=== PATIENT | female | born 1950 | race Caucasian/White ===

== ENCOUNTER 2024-11-18 13:15 | Inpatient (IN) | payer MEDICARE, OTHER ==
[~2024-11-18] VITALS: Ht 165.1 cm; Wt 57.5 kg
[2024-11-18 13:48] LABS: BASOPHILS % (AUTO) 0.3 % (0.0-2.0); EOSINOPHILS % (AUTO) 2.1 % (1.0-6.0); HEMATOCRIT 41.3 % (36-46); LYMPHOCYTES # (AUTO) 1.9 K/uL (1.0-4.8); LYMPHOCYTES % (AUTO) 30.4 % (22.0-44.0); MEAN CORPUSCULAR HEMOGLOBIN 32.3 pg (26.0-34.0); MEAN CORPUSCULAR HGB CONC 33.9 G/dL (31.0-37.0); MEAN CORPUSCULAR VOLUME 95 fL (80-100); MONOCYTES # (AUTO) 0.6 K/uL (0.1-1.0); MONOCYTES % (AUTO) 10.1 % (2.0-9.0); NEUTROPHILS # (AUTO) 3.5 K/uL (1.8-7.7); NEUTROPHILS % (AUTO) 57.1 % (40.0-70.0); PLATELET COUNT (AUTO) 250 K/uL (150-450); RED BLOOD CELL COUNT(AUTO) 4.33 MIL/uL (4.00-5.20); RED CELL DISTRIBUTION WIDTH 12.8 % (11.5-14.5); WHITE BLOOD COUNT (AUTO) 6.2 K/uL (4.5-11.0)
[2024-11-18 14:00] LABS: ANION GAP 8 mmol/L (8-16); CALCIUM, TOTAL 9.3 mg/dL (8.8-10.5); CARBON DIOXIDE 30 mmol/L (22-29); CHLORIDE 104 mmol/L (98-107); CREATININE 0.95 mg/dL (0.60-1.30); GLOMERULAR FILTR. RATE CALC 58 mL/min (>60); GLUCOSE,RANDOM 90 mg/dL (70-110); POTASSIUM 4.2 mmol/L (3.5-5.1); SODIUM SERUM 142 mmol/L (136-145); UREA NITROGEN, BLOOD 22 mg/dL (7-18)
[2024-11-18 14:06] LABS: ALBUMIN 3.6 g/dL (3.4-5.0); BILIRUBIN,DIRECT 0.1 mg/dL (0.00-0.20); BILIRUBIN,TOTAL 0.5 mg/dL (0.1-1.0); TOTAL PROTEIN, SERUM 7.1 g/dL (6.4-8.2)
[2024-11-18 14:15] LABS: TROPONIN I-HIGH SENSITIVITY 5 ng/L (<51)
[2024-11-18 14:28] LABS: APPEARANCE,URINE CLEAR (CLEAR); BILIRUBIN,URINE NEGATIVE (NEGATIVE); COLOR,URINE LIGHT YELLOW (YELLOW); GLUCOSE, URINE (UA) NEGATIVE (NEGATIVE); KETONES,URINE NEGATIVE (NEGATIVE); LEUKOCYTE ESTERASE ,URINE SMALL (NEGATIVE); NITRATE,URINE NEGATIVE (NEGATIVE); OCCULT BLOOD,URINE NEGATIVE (NEGATIVE); PH,URINE 6.5 (5.0-8.0); PROTEIN,URINE NEGATIVE (NEGATIVE); SPECIFIC GRAVITIY, URINE 1.011 (1.003-1.030); UROBILINOGEN,URINE <=1.0 mg/dL (<=1.0)
[2024-11-18 14:29] LABS: PH,URINE DRUG SCREEN 6.5 (5.0-8.0)
[2024-11-18 14:31] LABS: BACTERIA,URINE None Seen /HPF (None Seen); RBC,URINE None Seen /HPF (0-2); SQUAMOUS EPITHELIAL CELL,UR Moderate /LPF (None Seen); WBC,URINE 0-2 /HPF (0-5)
[2024-11-18 14:36] LABS: ALCOHOL, URINE DRUG SCREEN NEGATIVE (NEGATIVE); AMPHET/METH SCREEN,URINE NEGATIVE (NEGATIVE); BARBITURATE SCREEN, URINE NEGATIVE (NEGATIVE); BENZODIAZEPINES SCREEN,URINE NEGATIVE (NEGATIVE); CANNABINOID SCREEN,URINE NEGATIVE (NEGATIVE); COCAINE SCREEN,URINE NEGATIVE (NEGATIVE); METHADONE SCREEN, URINE NEGATIVE (NEGATIVE); OPIATE SCREEN,URINE NEGATIVE (NEGATIVE); PHENCYCLIDINE SCREEN,URINE NEGATIVE (NEGATIVE)
[2024-11-18 19:46] LABS: COVID AG,FIA SOURCE NASAL SWAB
[2024-11-18] MEDS ORDERED: HALOPERIDOL 5 MG TABLET PO PRN (20:15)
[2024-11-18] MEDS ORDERED: ZOLPIDEM TARTRATE 5 MG TABLET PO PRN (20:15)
[2024-11-18 20:19] LABS: SARS-COV2 (COVID) ANTIGEN,FIA Negative (Negative)
[2024-11-18] MEDS: DOCUSATE SODIUM 100 MG CAPSULE PO SCH (21:00)
[2024-11-18] MEDS ORDERED: ALBUTEROL SULFATE 2.5 MG/0.5 ML NEB SOLUTION NEB PRN (21:00)
[2024-11-18] MEDS ORDERED: IPRATROPIUM BROMIDE 0.5 MG/2.5 ML NEB SOLUTION NEB PRN (21:00)
[2024-11-18] MEDS ORDERED: ACETAMINOPHEN 325 MG TABLET PO PRN (21:00)
[2024-11-18] MEDS ORDERED: ONDANSETRON HCL 4 MG/2 ML VIAL IVP PRN (21:00)
[2024-11-18] MEDS ORDERED: 0.9% SODIUM CHLORIDE 10 ML SYRINGE IVP ONE (21:55)
[2024-11-18] MEDS ORDERED: SODIUM CHLORIDE 0.9% 100 ML ONE (21:55)
[2024-11-18] MEDS ORDERED: IOHEXOL 350 MG/ML 100 ML VIAL ONE (21:55)
[2024-11-18 23:45] VITALS: BP 124/61; PULSE 66; RESP 18; TEMP 97.5; O2SAT 100
[2024-11-18] MEDS: HEPARIN SODIUM,PORCINE 5,000 UNITS/ML VIAL SQ SCH (23:50)
[2024-11-19] MEDS ORDERED: ALEN70TA80 PO (00:41)
[2024-11-19] MEDS ORDERED: ASPI81TA87 PO (00:44)
[2024-11-19] MEDS ORDERED: ATOR20TA65 PO (00:46)
[2024-11-19] MEDS ORDERED: DORZ10DR32 OU (00:46)
[2024-11-19] MEDS ORDERED: FOLI-130 PO (00:54)
[2024-11-19] MEDS ORDERED: XALA2.5OS OU (00:54)
[2024-11-19] MEDS ORDERED: HYDR30CR3 TP (00:54)
[2024-11-19] MEDS ORDERED: LOSA-381 PO (00:54)
[2024-11-19] MEDS ORDERED: DORZ10DR6 OU (01:01)
[2024-11-19] MEDS ORDERED: MINE133E26 PR (01:04)
[2024-11-19] MEDS ORDERED: BISA-151 PR (01:07)
[2024-11-19] MEDS ORDERED: MAGN-169 PO (01:10)
[2024-11-19] MEDS ORDERED: TRAM50TA5 PO (01:11)
[2024-11-19] MEDS ORDERED: SODIUM CHLORIDE 0.9% 250 ML IV ONE (01:59)
[2024-11-19] MEDS: PIPERACILLIN/TAZO 3.375 GM/D5W 50 ML IV SCH ×2 (02:08→22:07)
[2024-11-19 04:13] VITALS: BP 109/95; PULSE 65; RESP 18; TEMP 98.1; O2SAT 98
[2024-11-19 06:34] LABS: BASOPHILS % (AUTO) 0.3 % (0.0-2.0); EOSINOPHILS % (AUTO) 1.7 % (1.0-6.0); HEMATOCRIT 41.3 % (36-46); HEMOGLOBIN 14.4 g/dL (12.0-16.0); LYMPHOCYTES # (AUTO) 1.1 K/uL (1.0-4.8); LYMPHOCYTES % (AUTO) 21.5 % (22.0-44.0); MEAN CORPUSCULAR HEMOGLOBIN 33.1 pg (26.0-34.0); MEAN CORPUSCULAR VOLUME 95 fL (80-100); MONOCYTES # (AUTO) 0.6 K/uL (0.1-1.0); MONOCYTES % (AUTO) 12.6 % (2.0-9.0); NEUTROPHILS # (AUTO) 3.2 K/uL (1.8-7.7); NEUTROPHILS % (AUTO) 63.9 % (40.0-70.0); PLATELET COUNT (AUTO) 211 K/uL (150-450); RED BLOOD CELL COUNT(AUTO) 4.36 MIL/uL (4.00-5.20); RED CELL DISTRIBUTION WIDTH 12.9 % (11.5-14.5)
[2024-11-19 07:21] LABS: CALCIUM, TOTAL 9.1 mg/dL (8.8-10.5); CREATININE 0.99 mg/dL (0.60-1.30); POTASSIUM 3.8 mmol/L (3.5-5.1)
[2024-11-19 08:04] VITALS: BP 110/70; PULSE 59; RESP 18; TEMP 98.1; O2SAT 100
[2024-11-19] MEDS ORDERED: DENTURE ADHESIVE 68 GM CREAM DT PRN (12:00)
[2024-11-19 16:21] VITALS: BP 114/63; PULSE 70; RESP 19; TEMP 98.1; O2SAT 99
[2024-11-19] MEDS: LORazepam 1 MG TABLET PO PRN (17:54)
[2024-11-19] MEDS: NICOTINE 14 MG/24 HOUR PATCH TD ONE (19:00)
[2024-11-19 20:20] VITALS: BP 104/74; PULSE 95; RESP 18; TEMP 98.2; O2SAT 94
[2024-11-20 04:59] VITALS: BP 105/58; PULSE 59; RESP 18; TEMP 97.7; O2SAT 96
[2024-11-20 08:59] VITALS: BP 93/65; PULSE 80; RESP 18; TEMP 98.2; O2SAT 99
[2024-11-20 16:28] VITALS: BP 105/57; PULSE 81; RESP 18; TEMP 98.6; O2SAT 97
[2024-11-20 20:35] VITALS: BP 123/71; PULSE 73; RESP 18; TEMP 98.2; O2SAT 97
[2024-11-21 06:00] VITALS: BP 108/68; PULSE 69; RESP 18; TEMP 97.7; O2SAT 98
[2024-11-21 08:40] VITALS: BP 108/77; PULSE 72; RESP 20; TEMP 97.9; O2SAT 98
[2024-11-21 17:00] VITALS: BP 109/70; PULSE 76; RESP 20; TEMP 97.9; O2SAT 98
== END 2024-11-21 17:45 | DRG 193 ==
LOC: EMS 13:19 → EDBEDREQ 20:39 → EDBEDREQTM 20:39 → EDBEDREQSVC 20:39 → EDH 20:59 → 6S 23:30
PROVIDERS: ADMIT Internal Medicine; ATTEND Internal Medicine
DX: J18.0 Bronchopneumonia, unspecified organism (principal); G93.41 Metabolic encephalopathy; E44.0 Moderate protein-calorie malnutrition; I10 Essential (primary) hypertension; F03.90 Unspecified dementia, unspecified severity, without behavioral disturbance, psychotic disturbance, mood disturbance, and anxiety; R41.89 Other symptoms and signs involving cognitive functions and awareness; E78.00 Pure hypercholesterolemia, unspecified; Z68.21 Body mass index [BMI] 21.0-21.9, adult; Z91.148 Patient's other noncompliance with medication regimen for other reason; Z66 Do not resuscitate; Z87.891 Personal history of nicotine dependence; Z91.199 Patient's noncompliance with other medical treatment and regimen due to unspecified reason
CPT/HCPCS: 70450; 71045; 71260; 72193; 74160; 80048; 80076; 80307; 81001; 82140; 83735; 84484; 85025; 87081; 92610; 93005; 99285; G0480; J1644; J2543; J7050; 36415-L1; 36415-TC